=== PATIENT | male | born 1940 | race Two or more races ===

== ENCOUNTER 2023-10-28 17:52 | Emergency (ER) | payer OTHER ==
[~2023-10-28] VITALS: Ht 175.3 cm; Wt 80.0 kg
[2023-10-28 17:55] VITALS: O2SAT 98
[2023-10-28] MEDS ORDERED: DEXTROSE 50% WATER 50ML SYRINGE IV ONE (18:43)
[2023-10-28] MEDS: DEXTROSE 50% WATER 50ML SYRINGE IV ONE (19:07)
[2023-10-28] MEDS: CEFTRIAXONE 1GM/50ML 50 ML IV ONE (19:29)
[2023-10-28] MEDS: SODIUM CHLORIDE 0.9% 1000ML BAG (SEPSIS BOLUS) IV ONE (19:30)
[2023-10-28 22:10] LABS: BASOPHILS % 0.2 % (0.0-2.0); EOSINOPHILS % 0.2 % (0.0-5.0); HEMATOCRIT. 36.9 % (42.0-52.0); HEMOGLOBIN. 11.9 g/dL (14.0-18.0); LYMPHOCYTES % 7.6 % (20.0-50.0); MEAN CORPUSCULAR HEMOGLOBIN 28.4 pg (28.0-32.0); MEAN CORPUSCULAR HGB CONC 32.3 g/dL (31.0-37.0); MEAN CORPUSCULAR VOLUME 87.9 fL (80.0-94.0); MEAN PLATELET VOLUME 8.3 fl (7.4-10.4); MONOCYTES % 6.8 % (2.0-8.0); NEUTROPHILS % 85.2 % (40.0-76.0); PLATELET 248 x1000/uL (130-400); RED CELL DISTRIBUTION WIDTH 16.2 % (11.6-14.6); WHITE BLOOD COUNT 10.9 x1000/uL (4.5-11.0)
[2023-10-28 22:12] LABS: CHLORIDE 105 mEq/L (98-107); POTASSIUM 3.5 mEq/L (3.5-5.1); SODIUM 140 mEq/L (136-145)
[2023-10-28 22:13] LABS: CALCIUM 8.8 mg/dL (8.7-10.4); CARBON DIOXIDE 25 mEq/L (21-32)
[2023-10-28 22:16] LABS: PROTHROMBIN TIME 10.7 sec (9.6-11.0)
[2023-10-28 22:18] LABS: GLUCOSE 94 mg/dL (70-105); UREA NITROGEN BLOOD 38 mg/dL (9-23)
[2023-10-28 22:19] LABS: TROPONIN I HIGH SENSITIVITY 19 ng/L (3.0-53)
[2023-10-28 22:20] LABS: ALANINE AMINOTRANSFERASE 7 IU/L (10-49); ALBUMIN 3.6 g/dL (3.2-4.8); ASPARTATE AMINOTRANSFERASE 14 IU/L (<34); BILIRUBIN TOTAL 0.5 mg/dL (0.1-1.0); LACTIC ACID 2.2 mmol/L (0.4-2.0)
[2023-10-28 22:24] LABS: CREATININE 5.4 mg/dL (0.6-1.3)
[2023-10-29 09:50] VITALS: BP 144/72; PULSE 68; RESP 14; TEMP 97.5
== END 2023-10-29 10:12 | disposition home or self-care (01) ==
LOC: ER 17:52 → CANBEDREQ 10-29 09:08 → ER 10-29 10:12
DX: E11.649 Type 2 diabetes mellitus with hypoglycemia without coma (principal); R42 Dizziness and giddiness; N18.6 End stage renal disease; E78.00 Pure hypercholesterolemia, unspecified; I10 Essential (primary) hypertension
CPT/HCPCS: 99285; 96365; 70450; 71045; 96375; 80053; 82962 ×2; 83880; 83605 ×2; 85025; 85610; 87040; 84484; 36415; 84145; 93005; J0696; J7030